=== PATIENT | female | born 1980 | race Caucasian/White ===

== ENCOUNTER 2017-11-07 17:07 | Inpatient (IN) | payer OTHER ==
[~2017-11-07] VITALS: Ht 177.8 cm; Wt 63.5 kg
[2017-11-07] MEDS ORDERED: IV NORMAL SALINE 1000 ML BAG IV ONE (17:15)
[2017-11-07] MEDS ORDERED: ONDANSETRON 4 MG/2 ML VIAL IV ONE (17:15)
[2017-11-07] MEDS ORDERED: MORPHINE SULFATE 2 MG/1 ML DISP.SYRIN IV ONE (17:15)
[2017-11-07 17:29] LABS: BASOPHILS # (AUTO) 0.1 K/uL (0.0-8.0); BASOPHILS % (AUTO) 0.7 % (0.0-2.0); EOSINOPHILS # (AUTO) 0.3 K/uL (0.0-0.7); EOSINOPHILS % (AUTO) 4.1 % (0.0-7.0); HEMATOCRIT 41.1 % (31.2-41.9); LYMPHOCYTES # (AUTO) 2.6 K/uL (20.0-40.0); LYMPHOCYTES % (AUTO) 30.9 % (20.5-51.5); MEAN CORPUSCULAR HEMOGLOBIN 30.2 uug (24.7-32.8); MEAN CORPUSCULAR HGB CONC 34 g/dL (32.3-35.6); MEAN CORPUSCULAR VOLUME 88.8 fL (75.5-95.3); MONOCYTES # (AUTO) 0.6 K/uL (2.0-10.0); MONOCYTES % (AUTO) 7.6 % (0.0-11.0); NEUTROPHILS # (AUTO) 4.8 K/uL (1.8-8.9); NEUTROPHILS % (AUTO) 56.7 % (38.5-71.5); PLATELET COUNT (AUTO) 272 K/uL (179-408); RED BLOOD CELL COUNT(AUTO) 4.62 MIL/uL (3.63-4.92); WHITE BLOOD COUNT (AUTO) 8.4 K/uL (3.8-11.8)
[2017-11-07] MEDS ORDERED: ONDANSETRON 4 MG/2 ML VIAL ONE ×2 (17:29→19:53)
[2017-11-07] MEDS ORDERED: MORPHINE SULFATE 4 MG/1 ML DISP.SYRIN ONE ×2 (17:29→18:49)
--- NOTE | 2017-11-07 17:30 | NUR ---
BIB EMS FOR C/O VAGINAL PAIN DURING/ADTER INTERCOURSE. PLACED ON A MONITOR.
[2017-11-07 17:40] LABS: CREATININE 0.8 mg/dL (0.6-1.3)
[2017-11-07 17:46] LABS: BILIRUBIN,DIRECT 0.1 mg/dL (0.0-0.2); BILIRUBIN,TOTAL 0.2 mg/dL (0.2-1.0)
[2017-11-07] MEDS ORDERED: MORPHINE SULFATE 4 MG/1 ML DISP.SYRIN IV ONE (18:30)
--- NOTE | 2017-11-07 19:01 | NUR ---
PATIENT WAS EXAMINED BY DR PERDOMO.. I WAS AT BEDSIDE ALSO. PATIENT RECEIVED A SECOND DOSE OF MORPHINE BECAUSE 1ST DOSE DID NOT RELIEVE HER PAIN.
[2017-11-07] MEDS ORDERED: ONDANSETRON IV *ER 4 MG/2 ML VIAL IV ONE (19:15)
[2017-11-07] MEDS ORDERED: FENTANYL CITRATE 100 MCG/2 ML AMPUL IV ONE (19:15)
[2017-11-07] MEDS ORDERED: FENTANYL CITRATE 100 MCG/2 ML AMPUL ONE (19:53)
--- NOTE | 2017-11-07 20:15 | NUR ---
REPORT GIVEN TO [facility] NURSEISABEL
[2017-11-07] MEDS ORDERED: HYDROMORPHONE 1 MG/1 ML DISP.SYRIN IV STA (21:07)
[2017-11-07] MEDS ORDERED: ONDANSETRON 4 MG/2 ML VIAL IV STA (21:07)
--- NOTE | 2017-11-07 21:35 | NUR ---
Pt. admitted to [facility], under care of GILBERTO ESPINOZA Belongs List completed
[2017-11-07 22:01] VITALS: BP 119/74
[2017-11-07] MEDS ORDERED: MAGNESIUM HYDROXIDE 30 ML LIQUID UDC PO PRN (22:15)
[2017-11-07] MEDS ORDERED: ACETAMINOPHEN 325 MG TABLET PO PRN (22:15)
[2017-11-07] MEDS ORDERED: ONDANSETRON 4 MG/2 ML VIAL IV PRN (22:15)
[2017-11-07] MEDS ORDERED: ZOLPIDEM 5 MG TABLET PO PRN (22:15)
[2017-11-07] MEDS ORDERED: Z GUARD REMEDY PASTE 57 GM TUBE TOP PRN (22:15)
--- NOTE | 2017-11-07 22:20 | NUR ---
Received patient from ER via gurney. A/O x 4. In no apparent distress. C/o abdominal pain 08/05. IV on the right AC patent and intact. [employer] took vital signs, stable, no temperature and sating at 96%. No skin issues noted. Safety initiated. Call light within reach. Room is clutter free. Bed is in low and locked position. Will closely monitor.
[2017-11-07] MEDS: IV NS 1000 ML 1,000 ML IV PRN (22:53)
[2017-11-07] MEDS: MORPHINE SULFATE 2 MG/1 ML DISP.SYRIN IV PRN (22:54)
--- NOTE | 2017-11-07 23:01 | NUR ---
C/O Abdominal pain 08/05. Morphine given. Will continue to monitor.
[2017-11-08 00:49] LABS: *BILIRUBIN,URIN NEGATIVE (NEGATIVE); *BLOOD, URINE 3+ (NEGATIVE); *CLARITY,URINE SLIGHTLY CLOUDY (CLEAR); *COLOR,URINE YELLOW (YELLOW); *KETONES,URINE NEGATIVE (NEGATIVE); *PROTEIN,URINE NEGATIVE (NEGATIVE); *UROBILINOGEN,URINE 0.2 E.U./dl (NORMAL); LEUKOCYTE ESTERASE ,URINE TRACE (NEGATIVE); NITRITE, URINE NEGATIVE (NEGATIVE); UGLUCOSE NEGATIVE (NEGATIVE)
[2017-11-08 01:05] LABS: RBC,URINE 50-80 /HPF (0-3)
[2017-11-08 01:06] LABS: BACTERIA,URINE FEW /HPF (NONE SEEN); MUCUS,URINE MODERATE /LPF (0-FEW); SQUAMOUS EPITHELIAL CELL,UR FEW /HPF (NONE SEEN)
[2017-11-08] MEDS: MORPHINE SULFATE 2 MG/1 ML DISP.SYRIN IV PRN ×2 (03:58→09:38)
[2017-11-08 04:00] VITALS: BP 101/68
[2017-11-08] MEDS ORDERED: diphenhydrAMINE 50 MG/1 ML VIAL IV PRN (05:15)
--- NOTE | 2017-11-08 05:51 | NUR ---
No changes t/o shift. C/o pain in the abdomen area. Medication given, stated relief. IV on the right AC patent and intact. IVF infusing. Remains NPO. Patient remains A/O x 4. No skin issues. Vital signs stable. Safety and comfort measures maintained t/o shift. All med given as ordered. All needs met.
[2017-11-08] MEDS ORDERED: MEROPENEM 1 G in IV NORMAL SALINE 100 ML IV SCH (06:00)
[2017-11-08 06:10] LABS: BASOPHILS % (AUTO) 0.4 % (0.0-2.0); EOSINOPHILS # (AUTO) 0.3 K/uL (0.0-0.7); EOSINOPHILS % (AUTO) 3.6 % (0.0-7.0); HEMATOCRIT 34.9 % (31.2-41.9); HEMOGLOBIN 11.8 g/dL (10.9-14.3); LYMPHOCYTES # (AUTO) 1.8 K/uL (20.0-40.0); LYMPHOCYTES % (AUTO) 22.1 % (20.5-51.5); MEAN CORPUSCULAR HEMOGLOBIN 30.5 uug (24.7-32.8); MEAN CORPUSCULAR HGB CONC 34 g/dL (32.3-35.6); MONOCYTES # (AUTO) 0.7 K/uL (2.0-10.0); MONOCYTES % (AUTO) 8.4 % (0.0-11.0); NEUTROPHILS # (AUTO) 5.3 K/uL (1.8-8.9); NEUTROPHILS % (AUTO) 65.5 % (38.5-71.5); PLATELET COUNT (AUTO) 202 K/uL (179-408); RED BLOOD CELL COUNT(AUTO) 3.88 MIL/uL (3.63-4.92); WHITE BLOOD COUNT (AUTO) 8.1 K/uL (3.8-11.8)
[2017-11-08 06:24] LABS: CREATININE 0.7 mg/dL (0.6-1.3); MAGNESIUM 1.9 mg/dL (1.8-2.4); PHOSPHOROUS 4.5 mg/dL (2.5-4.9); POTASSIUM 3.8 mmol/L (3.5-5.1)
--- NOTE | 2017-11-08 07:53 | NUR ---
Awake, alert, oriented x 4. complaining of headache /. IVF not infusing,will change IV site. NPO re instructed and maintained
[2017-11-08] MEDS ORDERED: PANTOPRAZOLE SODIUM 40 MG VIAL IV SCH (09:00)
[2017-11-08] MEDS: MEROPENEM 1 G in IV NORMAL SALINE 100 ML IV SCH ×2 (09:37→17:22)
--- NOTE | 2017-11-08 11:03 | NUR ---
INFORMATION SENT:DARIUS, UR-11/07. INSURANCE NAME:[facility] FAX NUMBER:[phone]/ [phone] FAX SENT
[2017-11-08 11:35] VITALS: BP 99/59
[2017-11-08] MEDS: MORPHINE SULFATE 4 MG/1 ML DISP.SYRIN IV PRN ×3 (13:34→21:27)
[2017-11-08 15:06] VITALS: BP 98/52
--- NOTE | 2017-11-08 16:30 | NUR ---
Dr. Kasper seen patient for gyne consult with orders
[2017-11-08] MEDS ORDERED: 5 DAY TAPER OF LORAZEPAM -SERENITY PROTOCOL PO PRN (16:45)
[2017-11-08] MEDS ORDERED: VENL150C2 PO (17:33)
[2017-11-08] MEDS ORDERED: ESZO3TAB27 PO (17:33)
[2017-11-08] MEDS ORDERED: ESTR1PAT TD (17:33)
--- NOTE | 2017-11-08 17:57 | NUR ---
Started on diet, tolerated. Denies anxiety at this time
[2017-11-08] MEDS: METRONIDAZOLE 500 MG/NS 100ML 500 MG in PREMIXED 1 EACH IV SCH ×2 (18:13→21:26)
[2017-11-08] MEDS: LORAZEPAM 1 MG TABLET PO PRN (18:14)
[2017-11-08 19:49] VITALS: BP 95/58
--- NOTE | 2017-11-08 20:00 | NUR ---
Pt observed to be sitting up in bed and noted to be AAO x3 c/o abdominal pa. Pt aware of plan of care.
--- NOTE | 2017-11-08 20:00 | NUR ---
Pt observed to be sitting up in bed and noted to be AAO x3 c/o abdominal pain- pt provided with warm packs to help alleviate discomfort. Made aware of plan of care. Safe environment implemented.
[2017-11-08] MEDS: IV NS 1000 ML 1,000 ML IV PRN (23:18)
[2017-11-09] MEDS: MEROPENEM 1 G in IV NORMAL SALINE 100 ML IV SCH ×3 (00:17→16:28)
[2017-11-09] MEDS: LORAZEPAM 1 MG TABLET PO PRN ×3 (00:17→20:15)
[2017-11-09] MEDS: MORPHINE SULFATE 4 MG/1 ML DISP.SYRIN IV PRN ×5 (01:42→20:42)
[2017-11-09 05:11] VITALS: BP 107/70
[2017-11-09] MEDS: METRONIDAZOLE 500 MG/NS 100ML 500 MG in PREMIXED 1 EACH IV SCH ×3 (05:57→20:44)
[2017-11-09 06:01] LABS: BASOPHILS % (AUTO) 0.7 % (0.0-2.0); EOSINOPHILS # (AUTO) 0.3 K/uL (0.0-0.7); EOSINOPHILS % (AUTO) 6.4 % (0.0-7.0); HEMATOCRIT 31.9 % (31.2-41.9); HEMOGLOBIN 10.9 g/dL (10.9-14.3); LYMPHOCYTES # (AUTO) 2.2 K/uL (20.0-40.0); LYMPHOCYTES % (AUTO) 42.5 % (20.5-51.5); MEAN CORPUSCULAR HEMOGLOBIN 30.9 uug (24.7-32.8); MEAN CORPUSCULAR HGB CONC 34 g/dL (32.3-35.6); MEAN CORPUSCULAR VOLUME 90.6 fL (75.5-95.3); MONOCYTES # (AUTO) 0.5 K/uL (2.0-10.0); MONOCYTES % (AUTO) 9.1 % (0.0-11.0); NEUTROPHILS # (AUTO) 2.1 K/uL (1.8-8.9); NEUTROPHILS % (AUTO) 41.3 % (38.5-71.5); PLATELET COUNT (AUTO) 171 K/uL (179-408); RED BLOOD CELL COUNT(AUTO) 3.52 MIL/uL (3.63-4.92); WHITE BLOOD COUNT (AUTO) 5.1 K/uL (3.8-11.8)
--- NOTE | 2017-11-09 06:12 | NUR ---
Stable condition Pain management provided as ordered. All needs attended to. Safe environment implemented. Call light within reach.
[2017-11-09] MEDS ORDERED: PANTOPRAZOLE SODIUM 40 MG TABLET.DR PO SCH (07:45)
[2017-11-09] MEDS ORDERED: VENLAFAXINE XR 150 MG CAP.SR.24H PO SCH (09:00)
[2017-11-09 11:13] VITALS: BP 114/65
[2017-11-09 15:30] VITALS: BP 113/73
--- NOTE | 2017-11-09 19:20 | NUR ---
RECEIVED PT AWAKE, ALERT, AND ORIENTEDX4. PT COMPLAIN OF PAIN ON ABDOMINAL AREA 8/10. PT SHOWS NO SIGNS OF SHORTNESS OF BREATH AND NO ACUTE DISTRESS. PT IV INTACT AND PATENT. SAFETY AND COMFORT PROVIDED. WILL CONTINUE TO MONITOR.
[2017-11-09 20:08] VITALS: BP 114/51
--- NOTE | 2017-11-09 21:15 | NUR ---
PT DISCHARGED. DISCHARGE INSTRUCTION AND PACKET GIVEN TO PT. PT UNDERSTAND. PT SHOWS NO SIGNS OF ACUTE DISTRESS. PT STABLE. IV SITE WAS TAKEN OUT. ID BAND TAKEN OFF. PT ESCORTED DOWN BY EPI CHARGE NURSE.
== END 2017-11-09 21:20 | disposition home or self-care (01) | DRG 383 ==
LOC: ER 17:09 → MED 20:52
PROVIDERS: ADMIT Hospitalist; ATTEND Hospitalist
DX: L03.818 Cellulitis of other sites (principal); F17.210 Nicotine dependence, cigarettes, uncomplicated; N39.0 Urinary tract infection, site not specified; Z90.710 Acquired absence of both cervix and uterus; F41.9 Anxiety disorder, unspecified; Z98.890 Other specified postprocedural states
CPT/HCPCS: 36415; 76700; 83690; 83735; 84100; 84703; 85025; 86850; 86900; 86901; 87040; 87086; A4663; C9113; J2185; J2270; J2405; J3010; J3490; J7030